=== PATIENT | male | born 1990 | race Caucasian/White ===

== ENCOUNTER 2025-04-23 08:13 | Emergency (ER) | payer MEDICAID, SELFPAY ==
[2025-04-23] VITALS (120 sets, daily range): BP systolic 115–153; BP diastolic 41–99; PULSE 82–111; RESP 11–25; TEMP 37–37.7; O2SAT 85–100
--- NOTE | 2025-04-23 08:00 | RT.EKG_ITS ---
APPROVED REPORT Exam: Resting ECG Reason for Exam: possible stroke Patient Location: E HR:106 bpm ECG Measurements Heart Rate 106 AXIS WY 148 P 66 QRSd 89 QRS 66 QT 334 T 66 QTc 445 Conclusion Sinus tachycardia...rate> 99
--- NOTE | 2025-04-23 08:15 | DI.RAD_ITS ---
Exam(s) XR CHEST 2V PA LATERAL EXAM: XR CHEST 2V PA LATERAL CLINICAL HISTORY: fever, cough. TECHNIQUE: 2D digital imaging was performed. COMPARISON: No exams were available for comparison FINDINGS: 2 views: Heart size is normal. The mediastinum is not widened. On the frontal view there is some peribronchial cuffing consistent with bronchitis. On the lateral view is an area of possible mild infiltrate in the lower lobe behind the hemidiaphragms. Difficult to determine which side. There are no pleural effusions. IMPRESSION: Mild lower lobe infiltrate superimposed upon bronchitis. There are no obvious pleural effusions. DATA REPOSITORY: RADIATION DOSE DELIVERED:
--- NOTE | 2025-04-23 08:23 | W.ED.GENAD ---
Discharge Plan Disposition Patient Disposition: Home Condition: Stable Discharge Details Clinical Impression: CAP (community acquired pneumonia), Speech abnormality Primary Care Provider: Unknown,Unknown ED Provider: Angelo Alexander Home Meds and New Rx's Prescriptions: New prednisone 20 mg tablet 60 mg PO DAILY 4 Days Qty: 12 0RF amoxicillin-pot clavulanate 875-125 mg tablet 1 tab PO BID Qty: 14 0RF azithromycin 250 mg tablet 250 mg PO DAILY 4 Days Qty: 4 0RF Continued oxycodone 10 mg tablet 10 mg PO TID hydrocodone-acetaminophen 5-325 mg tablet 1 tab PO TID Eliquis 5 mg tablet 5 mg PO BID lisinopril 5 mg tablet 5 mg PO DAILY omeprazole 20 mg capsule,delayed release(DR/EC) 20 mg PO DAILY Discharge Instructions Additional Instructions: Your CAT scan did not show any concerning findings at this time. Your blood work showed your liver function test were mildly elevated which can be from lung infection but this should be followed with your primary care provider. Take the antibiotics and the prednisone as prescribed. If you feel more ill, have severe worsening difficulty breathing or persistent vomiting return to the emergency department for reevaluation. Stand Alone Forms: Portal Information HPI General Mode of arrival: EMS. Date/Time Provider Initiated Documentation: 04/23/25 08:19. Limitations to Documentation: no limitations. Information obtained by: patient. History of Present Illness 34 year old M presents to the emergency department with the chief complaint of fever, cough, dyspnea, slurred speech, left arm weakness, described as moderate, Patient started experiencing this day(s) (2) and it has been constant. No relieving factors improve symptom(s), No exacerbating factors reported . Patient notes denies chest pain. Patient did receive the following treatments prior to arrival, none Related Data Home Medications ?Medication ?Instructions ?Recorded ?Confirmed amoxicillin 875 mg-potassium 1 tab PO BID #14 tabs 04/23/25 clavulanate 125 mg tablet apixaban 5 mg tablet (Eliquis) 5 mg PO BID 04/23/25 04/23/25 azithromycin 250 mg tablet 250 mg PO DAILY 4 days #4 tabs 04/23/25 hydrocodone 5 mg-acetaminophen 325 1 tab PO TID 04/23/25 04/23/25 mg tablet lisinopril 5 mg tablet 5 mg PO DAILY 04/23/25 04/23/25 omeprazole 20 mg capsule,delayed 20 mg PO DAILY 04/23/25 04/23/25 release oxycodone 10 mg tablet 10 mg PO TID 04/23/25 04/23/25 prednisone 20 mg tablet 60 mg (3 x 20 mg) PO DAILY 4 days 04/23/25 #12 tabs Previous Rx's ?Medication ?Instructions ?Recorded amoxicillin 875 mg-potassium 1 tab PO BID #14 tabs 04/23/25 clavulanate 125 mg tablet azithromycin 250 mg tablet 250 mg PO DAILY 4 days #4 tabs 04/23/25 prednisone 20 mg tablet 60 mg (3 x 20 mg) PO DAILY 4 days 04/23/25 #12 tabs Allergies Allergy/AdvReac Type Severity Reaction Status Date / Time aspirin Allergy Severe Unknown Verified 04/23/25 08:31 General Stated Complaint: CVA/TIA CAROL: 2 Review of Systems All systems reviewed & are unremarkable except as noted in HPI and below Constitutional Constitutional: Reports chills, Reports fever(s) and Reports weakness Cardiovascular Cardiovascular: Denies chest pain and Reports dyspnea Respiratory Respiratory: Reports cough and Reports dyspnea Gastrointestinal Gastrointestinal: Denies abdominal pain, Denies nausea and Denies vomiting Neurologic Neurologic: Reports abnormal speech and Reports weakness Exam Const General: no acute distress Orientation: alert [facility] Head: normal to inspection Ears: external ears normal General nose exam: external nose normal Mouth: moist mucous membranes Eyes General: appearance normal, both eyes and all related structures Neck Neck: normal visual inspection Resp Effort & Inspection: normal respiratory effort, able to speak in complete sentences and cough Auscultation: wheezes Cardio Rate: regular rate Skin General skin exam: no rashes or lesions noted Neuro General: patient alert and patient oriented x3 Cranial Nerves: CN's II-XI intact bilaterally Cognition: normal cognition Speech: speech normal Motor: muscle tone normal throughout Sensory Exam: no sensory deficits noted Extrem General: normal to inspection Psych Mental Status: mental status grossly normal Course Vital Signs Vital signs: Vital Signs Pulse 104 H 04/23/25 08:14 Respiratory Rate 18 04/23/25 08:14 Blood Pressure 118/41 L 04/23/25 08:14 Pulse Oximetry 98 04/23/25 08:14 Temperature Source Tympanic 04/23/25 08:14 Pulse 104 H 04/23/25 08:14 Respiratory Rate 16 04/23/25 08:18 Respiratory Effort Short of Breath, Labored 04/23/25 08:18 Respiratory Depth Normal 04/23/25 08:18 Respiratory Pattern Normal 04/23/25 08:18 Blood Pressure 118/41 L 04/23/25 08:14 Blood Pressure Position Supine 04/23/25 08:14 Pulse Oximetry 98 04/23/25 08:14 Oxygen Delivery Method Room Air 04/23/25 08:14 Oxygen Flow Rate 0 04/23/25 08:14 Pain Level 0 04/23/25 08:14 Lab/Test Results Lab/Test Results: 04/23/25 08:20 Blood Blood Culture - Pending 04/23/25 08:20 Blood Blood Culture - Pending Medical Decision Making 36-year-old male who states he has a history of prior DVT/PE and is on Eliquis and states he has not missed any doses, comes in with 2 days of fevers to 102 along with a cough. Denies any rashes, abdominal pain, no IV drug use. He says this morning he woke up and felt his speech was different and had left arm weakness. When first responders arrived they noted a room air saturation of 80% and was placed on oxygen which he says resolved his speech issues and his left arm weakness. He is currently oriented x 4, he is speaking in full sentences with an intermittent cough. He has apical wheezing bilaterally and diminished breath sounds at the bases, he is a smoker per the patient. Cranial nerves II through XII are intact, he has no weakness on exam or sensory deficits noted, his NIH is 0. Given his reported fevers and cough I suspect he has a respiratory infection, will check CBC CMP and lactate and procalcitonin. Will obtain a chest x-ray. Given his reported speech changes and left arm weakness we will also proceed with a CT head and CTA my suspicion for CVA/TIA is low especially with him being on Eliquis already. Patient feeling better, labs show elevated LFTs and a elevated pCO2 consistent with likely underlying reactive airway disease, he has no abdominal tenderness on exam and states that his primary care has been following the liver function test is a bit elevated. This could be from fatty liver and also from pneumonia which he appears to have on x-ray and based on his symptoms. Will give a dose of ceftriaxone and azithromycin and reassess. Pending CTA read. CTA negative, patient continues to feel well but still has hypoxia on the high 80s off oxygen, still does have wheezing on exam so we will trial another DuoNeb. Patient continues to feel well, lungs are now clear and his O2 sats are ranging from 90 to 93% on room air. I will have him follow-up with a primary care provider and we will try to get him established with one as he is new to the area. I will start him on Augmentin and azithromycin and also prednisone. Return precautions given Differential Diagnosis Differential Diagnosis: pneumonia, covid, flu, tia Lab Data Lab results reviewed: Yes I reviewed the patient's lab results. ECG Data Attestation: I personally reviewed and interpreted this ECG (s) as follows: Prior ECG tracings: not available for review Interpretation: sinus tachycardia, rate of 106 no stemi PFSH All Active Problems (Updated 04/23/25 @ 10:53 by Angelo Alexander MD) Speech abnormality (Acute) CAP (community acquired pneumonia) (Acute) Social History Smoking/Tobacco Use Status: Current every day Tobacco Type: cigarettes Smoking risk assessment performed?: Yes Do you feel safe at home: Yes Do you feel safe in your relationship?: Yes
[2025-04-23] MEDS: Normal Saline Flush 10 ML SYR IVP (08:26)
[2025-04-23] MEDS: Normal Saline - Diluent 50 ML VIAL IJ (08:26)
[2025-04-23 08:40] LABS: BE (Venous) 5 mmol/L (-2-3); HCO3 (Venous) 31 mmol/L (23-28); O2 Sat (Venous) 67 %; TCO2 (Venous) 28 mmol/L (24-29); pCO2 (Venous) 60 mmHg (41-51); pO2 (Venous) 37 mmHg
[2025-04-23 08:42] LABS: Abs Immature Grans 0.04 10^3/uL (0.0-0.06); HCT 42.0 % (40.0-50.0); HGB 13.2 g/dL (13.5-17.5); Immature Grans % 0.5 %; MCH 30.0 pg (27.0-33.0); MCHC 31.4 % (32.0-36.0); MCV 96 fL (80-95); MPV 9.5 fL (8.0-11.0); Platelet Count 223 10^3/uL (130-400); RBC 4.40 10^6/uL (4.36-5.78); RDW 12.9 % (11.8-14.1); RDW-SD 45.5 fL; WBC 7.98 10^3/uL (4.4-10.8)
[2025-04-23] MEDS: Omnipaque 350 MG/ML 100 ML BTL IJ (08:44)
--- NOTE | 2025-04-23 08:46 | DI.CT_ITS ---
Exam(s) CT BRAIN NECK CTA EXAM: CT BRAIN NECK CTA CLINICAL HISTORY: slurred speech, left arm weakness. TECHNIQUE: Imaging Protocol: Axial CT angiography was performed with multi- slice acquisition and multi-planar and/or 3D reconstructions. CONTRAST MATERIAL: Intravenous: Omnipaque 350 Contrast volume:70 mL COMPARISON: No exams were available for comparison FINDINGS: CTA Neck W: Aortic arch anatomy: The aortic arch anatomy is conventional and there is no significant stenosis at the origin of the great vessels off of the aortic arch. No intimal flap evident. Anterior circulation: Both common carotid arteries ascend with normal luminal diameters. There is no significant stenosis at the carotid bifurcations and proximal ICAs. Both internal carotid arteries exhibit a somewhat medial course in the mid-upper neck. They are patent in the skull base-carotid canals. Posterior circulation: Both vertebral arteries originate in conventional fashion off of the subclavian arteries and there is no obvious stenosis at the origin of the vertebral arteries. Both vertebral arteries exhibit normal luminal diameters within the foramen transversarium. Both vertebral arteries contribute to the formation of the basilar artery at the skull base. CTA Brain W: Anterior circulation: Both internal carotid arteries are patent in the skull base-carotid canals as well as within the cavernous sinuses. The supraclinoid aspects of the ICAs are patent. Both A1 segments are patent as are the anterior cerebral arteries and there is no evidence of aneurysm at the level of the anterior communicating artery. Both middle cerebral arteries are patent with no evidence of significant stenosis nor intraluminal thrombus. There also no aneurysms of these vessels. Posterior circulation: The basilar artery ascends in the midline. Distally it gives off patent bilateral superior cerebellar arteries. Above this level the basilar artery terminates as patent bilateral posterior cerebral arteries. There is no evidence of aneurysm at the tip of the basilar artery nor elsewhere in the hualli-of-Dmmecm. CT BRAIN: There is no evidence of intracranial hemorrhage, mass effect, or shift of midline structures. There are no extra-axial fluid collections. Ventricles are not enlarged or shifted. There are no ring enhancing lesions in the brain and no abnormal meningeal enhancement. IMPRESSION: 1. Patent carotid arteries in the neck. No hemodynamically significant stenosis. 2. Patent vertebral arteries. No stenosis. No dissection. 3. Patent intracranial arteries. 4. No acute intracranial findings. If clinically indicated follow-up MRI can be performed Report called by myself to ER physician 04/23/2025 at 9:20 a.m.. RADIATION DOSE DELIVERED: 2,516.83mGy.cm Total DLP DATA REPOSITORY: All CT scans at this facility are submitted to the National Radiology Data Registry (NRDR) Dose Index Registry (DIR) with the [employer] ([employer]). RADIATION OPTIMIZATION: All CT scans at this facility use at least one of these dose optimization techniques: automated exposure control; mA and/or kV adjustment per patient size (includes targeted exams where dose is matched to clinical indication); or iterative reconstruction.
[2025-04-23 08:55] LABS: INR 1.0 (0.9-1.1); PTT Activated 24.6 sec (20.6-30.2); Prothrombin Time 9.7 sec (9.1-11.1)
[2025-04-23] MEDS: Normal Saline 1,000 ML 1000 ML IV (09:02)
[2025-04-23] MEDS: ACETAMINOPHEN 1,000 MG/100 ML BAG 400 MG IVPB (09:02)
[2025-04-23] MEDS: methylPREDNISolone SUCC 125 MG VIAL IVP (09:02)
[2025-04-23] MEDS: Albuterol/Ipratropium 3 ML UPD VIAL UPD ×2 (09:02→09:36)
[2025-04-23 09:04] LABS: Magnesium 1.8 mg/dL (1.6-2.6)
[2025-04-23 09:06] LABS: ALT 156 U/L (10-49); AST 78 U/L (<34); Albumin 4.1 g/dL (3.2-5.0); Alkaline Phosphatase 169 U/L (46-116); Anion Gap 4.8 mmol/L (3-11); BUN 15 mg/dL (9-23); Bilirubin, Total 0.3 mg/dL (0.2-1.2); CO2 32.2 mmol/L (20.0-31.0); Calcium 8.7 mg/dL (8.3-10.6); Chloride 104 mmol/L (98-107); Glucose 116 mg/dL (74-106); Potassium 4.7 mmol/L (3.5-5.1); Sodium 141 mmol/L (136-145); Total Protein 7.1 g/dL (5.7-8.2)
[2025-04-23 09:08] LABS: TSH (W/Ref FT4) 0.48 uIU/mL (0.55-4.78)
[2025-04-23 09:12] LABS: COVID-19 PCR Negative (Negative); RSV PCR Negative (Negative)
[2025-04-23 09:21] LABS: Procalcitonin < 0.10 ng/mL
[2025-04-23] MEDS: cefTRIAXone 2 GM/50 ML BAG IVPB (09:34)
[2025-04-23] MEDS: AZITHROMYCIN 500 MG in Normal Saline 250 ML 250 MG IVPB (09:47)
[2025-04-23] MEDS: HYDROcodone 10/Acetaminophen 325 TAB PO (10:30)
== END 2025-04-23 11:08 | disposition home or self-care (01) ==
PROVIDERS: Emergency Provider Emergency Medicine
DX: J18.9 Pneumonia, unspecified organism (principal); R47.9 Unspecified speech disturbances; R06.02 Shortness of breath
CPT/HCPCS: 99284; 99285; 36415; 36416; 82962; 94640; 96375; 96368; 70496; 70498; 80053; 82805; 84145; 87040; 87637; 93005; 96365; 71046; 83605; 83735; 83880; 84439; 84443; 85025; 85610; 85730; 93010; J0131; J0456; J0696; J2919; J3490; J7620

== ENCOUNTER 2025-04-27 02:22 | Emergency (ER) | payer MEDICAID, SELFPAY ==
[2025-04-27 02:30] VITALS: BP 135/73; PULSE 85; RESP 18; TEMP 36.5; O2SAT 98
--- NOTE | 2025-04-27 02:34 | W.ED.GENAD ---
Discharge Plan Disposition Patient Disposition: Home Condition: Good Discharge Details Clinical Impression: Fluid retention, Hypokalemia, Adverse effect of prednisone Primary Care Provider: None,None ED Provider: Joe Marcus and New Rx's Prescriptions: New furosemide [Lasix] 20 mg tablet 20 mg PO DAILY Qty: 3 0RF potassium chloride [Klor-Con M20] 20 mEq tablet,ER particles/crystals 20 meq PO DAILY Qty: 5 0RF Continued oxycodone 10 mg tablet 10 mg PO TID hydrocodone-acetaminophen 5-325 mg tablet 1 tab PO TID Eliquis 5 mg tablet 5 mg PO BID lisinopril 5 mg tablet 5 mg PO DAILY omeprazole 20 mg capsule,delayed release(DR/EC) 20 mg PO DAILY amoxicillin-pot clavulanate 875-125 mg tablet 1 tab PO BID Qty: 14 0RF diazepam 5 mg tablet 5 mg PO DAILY Patient Comments: TAKE 1 TABLET BY MOUTH DAILY at night bupropion HCl 150 mg tablet extended release 24 hr 150 mg PO DAILY Patient Comments: TAKE 3 TABLETS BY MOUTH EVERY DAY gabapentin 800 mg tablet 400 mg PO TID PRN Discharge Instructions Additional Instructions: You were seen in the ED for abdominal discomfort and swelling. This is likely related to fluid retention secondary to prednisone use. Your potassium was a little low, again likely related to the prednisone. All of this should correct itself now that you are off the prednisone. However, given the amount of fluid and discomfort I will place you on furosemide for 3 days. This should increase your fluid output and provide more comfort. You should take the prescribed potassium for the next 5 days. Follow-up with primary care for recheck in 1 to 2 weeks. Return to ED for any fever, persistent vomiting, worsening abdominal pain, other concerns. Stand Alone Forms: Portal Information HPI General Mode of arrival: ambulatory. Date/Time Provider Initiated Documentation: 04/27/25 02:25. Limitations to Documentation: no limitations. Information obtained by: patient and RN notes reviewed. HPI Narrative: Patient presents to ED complaint of abdominal discomfort and swelling. He was seen here just before [place] and diagnosed with pneumonia. He was placed on antibiotics as well as prednisone due to diffuse wheezing. He has finished the prednisone and azithromycin. He continues on the Augmentin. Reports that his breathing and cough is much improved. He has no vomiting or diarrhea. He has no real abdominal pain. He is having discomfort and swelling of his abdominal wall. He is still making urine. He has not noticed significant swelling in his legs. He spoke to primary care who thought it was likely related to the prednisone and fluid retention but did feel he should be evaluated because of the complaint of abdominal pain. Related Data Home Medications ?Medication ?Instructions ?Recorded ?Confirmed amoxicillin 875 mg-potassium 1 tab PO BID #14 tabs 04/23/25 04/27/25 clavulanate 125 mg tablet apixaban 5 mg tablet (Eliquis) 5 mg PO BID 04/23/25 04/27/25 hydrocodone 5 mg-acetaminophen 325 1 tab PO TID 04/23/25 04/27/25 mg tablet lisinopril 5 mg tablet 5 mg PO DAILY 04/23/25 04/27/25 omeprazole 20 mg capsule,delayed 20 mg PO DAILY 04/23/25 04/27/25 release oxycodone 10 mg tablet 10 mg PO TID 04/23/25 04/27/25 bupropion HCl 150 mg 24 hr tablet, 150 mg PO DAILY 04/27/25 04/27/25 extended release diazepam 5 mg tablet 5 mg PO DAILY 04/27/25 04/27/25 furosemide 20 mg tablet (Lasix) 20 mg PO DAILY #3 tabs 04/27/25 gabapentin 800 mg tablet 400 mg PO TID PRN 04/27/25 04/27/25 potassium chloride 20 mEq 20 meq PO DAILY #5 tabs 04/27/25 tablet,extended release(part/cryst) (Klor-Con M) Previous Rx's ?Medication ?Instructions ?Recorded amoxicillin 875 mg-potassium 1 tab PO BID #14 tabs 04/23/25 clavulanate 125 mg tablet furosemide 20 mg tablet (Lasix) 20 mg PO DAILY #3 tabs 04/27/25 potassium chloride 20 mEq 20 meq PO DAILY #5 tabs 04/27/25 tablet,extended release(part/cryst) (Klor-Con M) Allergies Allergy/AdvReac Type Severity Reaction Status Date / Time aspirin Allergy Severe Unknown Verified 04/27/25 02:39 General CAROL: 2 Exam Narrative Exam Narrative: Const: Obese male in NAD. VS per triage. HEENT: NC/AT. Normal facial exam. Neck: Supple. Trachea midline. Lungs: Normal respiratory effort. Lungs are clear. Cor: RRR without murmur. Good radial pulses. GI: Soft/ND/NT. Abdominal wall edema present. Neuro: A+O x 3. Normal speech, mentation, gait. Cranial nerves II - XII grossly intact. No gross motor or sensory deficit. Ext: No C/C. BLE edema present. Medical Decision Making Patient presenting to ED with abdominal discomfort and swelling. He is found to have edema involving the abdominal wall and lower extremities. His abdomen is otherwise completely benign. He is not having GI symptoms or fever. I believe he is having fluid retention from the prednisone that he has just finished. Do not think he requires imaging of the abdomen but we will check labs to ensure normal kidney function and no significant electrolyte abnormalities. Patient with a little drop in hemoglobin which may be dilutional. Kidney function remains normal. His electrolytes are normal other than potassium is 3.3. Liver functions have gone up a little compared to previous. Patient reports that this has been an ongoing problem with his liver function going up and down for no clear reason. Given the abdominal discomfort and edema in the abdominal wall I we will prescribe furosemide for the next 3 days to help with fluid removal. He has finished the prednisone so it should not be a further problem. I will also place him on potassium replacement for the next 5 days. He will need to follow-up with primary care for recheck in 1 week. Return precautions provided. Lab Data Lab results reviewed: Yes I reviewed the patient's lab results. Lab results narrative: see [facility] All Active Problems (Updated 04/27/25 @ 04:42 by Joe Marcus MD) Adverse effect of prednisone (Acute) Hypokalemia (Acute) Fluid retention (Acute) Speech abnormality (Acute) CAP (community acquired pneumonia) (Acute) Medical History (Updated 04/27/25 @ 04:42 by Joe Marcus MD) HTN (hypertension) Pulmonary embolism Social History Smoking/Tobacco Use Status: Current every day Tobacco Type: cigarettes Smoking risk assessment performed?: Yes Housing: house Do you feel safe at home: Yes Do you feel safe in your relationship?: Yes
[2025-04-27 03:58] LABS: Abs Immature Grans 0.05 10^3/uL (0.0-0.06); HCT 36.8 % (40.0-50.0); HGB 11.7 g/dL (13.5-17.5); Immature Grans % 0.6 %; MCH 29.8 pg (27.0-33.0); MCHC 31.8 % (32.0-36.0); MCV 94 fL (80-95); MPV 9.3 fL (8.0-11.0); Platelet Count 203 10^3/uL (130-400); RBC 3.93 10^6/uL (4.36-5.78); RDW 13.2 % (11.8-14.1); RDW-SD 45.8 fL; WBC 9.03 10^3/uL (4.4-10.8)
[2025-04-27 04:19] LABS: ALT 197 U/L (10-49); AST 141 U/L (<34); Albumin 3.8 g/dL (3.2-5.0); Alkaline Phosphatase 169 U/L (46-116); Anion Gap 7.3 mmol/L (3-11); BUN 18 mg/dL (9-23); Bilirubin, Total 0.4 mg/dL (0.2-1.2); CO2 29.7 mmol/L (20.0-31.0); Calcium 8.7 mg/dL (8.3-10.6); Chloride 107 mmol/L (98-107); Glucose 82 mg/dL (74-106); Magnesium 2.0 mg/dL (1.6-2.6); Potassium 3.3 mmol/L (3.5-5.1); Sodium 144 mmol/L (136-145); Total Protein 6.4 g/dL (5.7-8.2)
[2025-04-27 04:42] VITALS: PULSE 90; RESP 20; O2SAT 100
== END 2025-04-27 04:43 | disposition home or self-care (01) ==
PROVIDERS: Emergency Provider Emergency Medicine
DX: T38.0X5A Adverse effect of glucocorticoids and synthetic analogues, initial encounter (principal); R60.9 Edema, unspecified; E87.6 Hypokalemia
CPT/HCPCS: 99283 ×2; 80053; 83735; 85025